=== PATIENT | female | born 1970 | race Two or more races ===

== ENCOUNTER 2017-11-06 14:25 | Outpatient (CLI) | payer OTHER ==
[~2017-11-06 14:25] MED LIST: PERCOCET 5/3251 TAB PO; PROTONIX40 MG PO; ZOFRAN4 MG PO
== END 2017-11-06 15:39 | disposition home or self-care (01) ==
LOC: SONOGRAMA 14:25
DX: R10.2 Pelvic and perineal pain (principal)

== ENCOUNTER → 2017-12-17 08:01 | Outpatient (CLI) | payer OTHER | END | disposition home or self-care (01) | LOC: LAB 08:01 | DX: N39.0 Urinary tract infection, site not specified (principal) ==

== ENCOUNTER 2018-01-09 15:13 | Outpatient (CLI) | payer OTHER | END 2018-01-09 15:16 | disposition home or self-care (01) | LOC: SONOGRAMA 15:13 | DX: R33.8 Other retention of urine (principal); N39.498 Other specified urinary incontinence ==

== ENCOUNTER 2018-09-21 18:22 | Emergency (ER) | payer OTHER ==
[~2018-09-21] VITALS: Ht 162.6 cm; Wt 60.8 kg
== END 2018-09-21 22:55 | disposition home or self-care (01) ==
LOC: ER 18:22
DX: M54.5 Low back pain (principal)

== ENCOUNTER 2018-10-29 09:38 | Outpatient (CLI) | payer OTHER | END 2018-10-29 17:00 | disposition home or self-care (01) | LOC: TOM 09:38 | DX: N13.39 Other hydronephrosis (principal) ==